=== PATIENT | male | born 1960 | race Caucasian/White ===

== ENCOUNTER → 2016-09-04 | Outpatient (CLI) | payer BC ==
[~2016-09-04] MED LIST: IOPAMIDOL (ISOVUE-300) 100 ML BTL ONE
== END ==
LOC: CIMAGING 14:36
PROVIDERS: ATTEND Internal Medicine Gastroenterology
DX: K57.32 Diverticulitis of large intestine without perforation or abscess without bleeding (principal)
CPT/HCPCS: 74177-PO; Q9967

== ENCOUNTER 2016-09-13 10:42 | Emergency (ER) | payer BC ==
[2016-09-13] MEDS ORDERED: MAG HYDROX/AL HYDROX/SIMETH 30 ML UDCUP PO ONE (11:23)
--- NOTE | 2016-09-13 11:30 | CPEKG ---
Heart Rate: 61 RR Interval: 984 P-R Interval: 168 QRSD Interval: 92 QT Interval: 416 QTC Interval: 419 P [place]: 35 QRS [place]: 23 T Wave [place]: 54 EKG Severity - NORMAL ECG - EKG Impression: SINUS RHYTHM Electronically Signed By: Suresh Cortés 13-Sep-2016 15:17:48
[2016-09-13 11:48] LABS: % IMMATURE GRANULYOCYTES 0.6 % (0.0-1.1); ABSOLUTE IMMATURE GRANULOCYTES 0.05 10^3/uL (0.00-0.10); ADD DIFF? NO; ADD MORPH? NO; ADD SCAN? NO; ATYPICAL LYMPHOCYTE FLAG 10 (0-99); FRAGMENT RBC FLAG 0 (0-99); HEMATOCRIT 51.8 % (40.0-51.0); HEMOGLOBIN 18.2 g/dL (13.7-17.5); LEFT SHIFT FLG 0 (0-99); LIPEMIA HEMOLYSIS FLAG 90 (0-99); MEAN CELL HEMOGLOBIN 30.4 pg (27.9-34.1); MEAN CELL HEMOGLOBIN CONCENTR. 35.1 g/dL (32.4-36.7); MEAN CELL VOLUME 86.6 fL (81.5-99.8); MEAN PLATELET VOLUME 10.3 fL (8.7-11.7); PLATELET CLUMPS FLAG 0 (0-99); PLATELET COUNT 250 10^3/uL (150-400); RED BLOOD CELL COUNT 5.98 10^6/uL (4.40-6.38); RED CELL DISTRIBUTION WIDTH 12.9 % (11.5-15.2)
[2016-09-13 12:00] LABS: ALANINE AMINOTRANSFERASE 43 IU/L (21-72); ALBUMIN 4.3 g/dL (3.5-5.0); ALKALINE PHOSPHATASE 81 IU/L (38-126); ANION GAP 15 mEq/L (8-16); ASPARTATE AMINOTRANSFERASE 26 IU/L (17-59); BILIRUBIN,TOTAL 0.7 mg/dL (0.1-1.4); CARBON DIOXIDE 23 mEq/l (22-31); CHLORIDE 102 mEq/L (97-110); CREATININE 0.8 mg/dL (0.7-1.3); GLOMERULAR FILTRATION RATE > 60; GLUCOSE 92 mg/dL (70-100); POTASSIUM 3.8 mEq/L (3.5-5.2); SODIUM 140 mEq/L (134-144); TOTAL PROTEIN 7.7 g/dL (6.3-8.2)
--- NOTE | 2016-09-13 12:47 | EDPHY ---
H & P Stated Complaint: epigastric pain since last night; LLQ pain 1wk; saw dr gray diverticulis Time Seen by Provider: 09/13/16 11:12 HPI/ROS: This patient has epigastric pain. He describes the intensity as peak 6/10 when it awakened him last night. Currently it is 3/10 slightly achy and burning in nature. He had some mild acid reflux symptoms prior to the onset of the symptoms yesterday. He also notes that after awakening he sat up in the couch and that improved his pain were as lying supine worsened his symptoms. No other exacerbating factors were noted. There is no radiation to his back. His recent history includes diagnosis of sigmoid diverticulitis via CT scan performed on 09/04/2016 at this facility after exam and evaluation by his primary care physician Dr. Usah Hearn. ROS: No fevers or chills. No other constitutional symptoms HEENT: No URI symptoms or other complaints Pulmonary: No cough shortness of breath Cardiovascular: No lightheadedness, chest pain or heart palpitations GI: His lower belly-left lower quadrant diverticulitis pain has resolved. He reports no nausea or vomiting. He has normal bowel movements. He maintains good appetite. : No complaints Integumentary: No complaints Neuro: No complaints 10 point ROS is otherwise negative Source: Patient Exam Limitations: No limitations - Personal History Current Tetanus/Diphtheria Vaccine: No Current Tetanus Diphtheria and Acellular Pertussis (TDAP): No - Medical/Surgical History PMH: Sigmoid diverticulitis as noted in HPI diagnosed 09/04/2016 H pylori treated in [place] Hx Asthma: No Hx Chronic Respiratory Disease: No Hx Diabetes: No Hx Cardiac Disease: No Hx Renal Disease: No Hx Cirrhosis: No Hx Alcoholism: No Hx HIV/AIDS: No Hx Splenectomy or Spleen Trauma: No - Family History Significant Family History: No pertinent family hx - Social History Smoking Status: Never smoked Alcohol Use: Occasionally Drug Use: None Additional Social History: The patient just moved here 2 weeks ago from [place] - Physical Exam Exam: General Appearance: Alert, no distress. Eyes: Pupils equal and round no pallor or injection. ENT, Mouth: Mucous membranes moist. Respiratory: There are no retractions, lungs are clear to auscultation. Cardiovascular: Regular rate and rhythm. Gastrointestinal: Normoactive, soft, mild epigastric tenderness that reproduces symptoms. No guarding or rebound. No lower belly tenderness Back: No CVA tenderness Neurological: GCS 15. No focal deficits Skin: Warm and dry, no rashes. Musculoskeletal: Neck is supple nontender. Extremities are symmetrical, full range of motion. Psychiatric: Mood and affect normal DIFFERENTIAL DIAGNOSIS: After history and physical exam differential diagnosis was considered for gastritis, pancreatitis, hepatitis, doubt ulcer, cardiac ischemia Constitutional: Initial Vital Signs Temperature (C) 37.2 C 09/13/16 10:50 Heart Rate 70 09/13/16 10:50 Respiratory Rate 20 09/13/16 10:50 O2 Sat (%) 95 09/13/16 10:50 O2 Delivery Mode Room Air Allergies/Adverse Reactions: No Known Allergies Allergy (Unverified 09/13/16 10:56) Home Medications: Medication Instructions Recorded Ciprofloxacin HCl 09/13/16 Dicyclomine HCl 09/13/16 Metronidazole 09/13/16 Pantoprazole Sodium [Protonix 40mg 40 mg PO DAILY #30 tab 09/13/16 (RX)] Medical Decision Making - Diagnostics EKG Interpretation: 12 lead EKG performed shortly after arrival indication epigastric pain rule out CT Performed at 11:20 a.m. Sinus rhythm at 61 Intervals: Normal throughout [place]: Normal throughout ST segments: Normal throughout Overall assessment: Normal EKG for complete read, refer to trace master Differential Diagnosis: GI cocktail with relief Review of labs reveals normal CBC, normal LFTs and chemistries. Discussion: Findings are most consistent with gastritis. Patient reports increased social stressors admits to increasing his caffeine intake from 1 cup of coffee due to 4 cups of coffee today "because there is a great coffee machine " at his new place of employment. I think that he is gastritis attributable to increased caffeine increase stress currently. H pylori recurrences another possibility. We ruled out hepatitis, pancreatitis, doubt ulcer given lack of significant clinical history of 4 that diagnosis and lack of anemia. I counseled the patient to continue and complete his current antibiotics for diverticulitis, to take probiotic and/or yogurt in addition an to start Protonix at 40 mg a day. He will follow up with primary care physician. For ongoing symptoms despite treatment plan I suggested follow up with Gastroenterology for further evaluation. - Data Points Laboratory Results: Laboratory Results 09/13/16 11:35 09/13/16 11:35 05/21/17 05/21/17 11:35 11:35 WBC 8.05 10^3/uL 10^3/uL (3.80-9.50) RBC 5.98 10^6/uL 10^6/uL (4.40-6.38) Hgb 18.2 g/dL H g/dL (13.7-17.5) Hct 51.8 % H % (40.0-51.0) MCV 86.6 fL fL (81.5-99.8) MCH 30.4 pg pg (27.9-34.1) MCHC 35.1 g/dL g/dL (32.4-36.7) RDW 12.9 % % (11.5-15.2) Plt Count 250 10^3/uL 10^3/uL (150-400) MPV 10.3 fL fL (8.7-11.7) Neut % (Auto) 74.5 % H % (39.3-74.2) Lymph % (Auto) 16.9 % % (15.0-45.0) [place] % (Auto) 6.0 % % (4.5-13.0) Eos % (Auto) 1.6 % % (0.6-7.6) Baso % (Auto) 0.4 % % (0.3-1.7) Nucleat RBC Rel Count 0.0 % % (0.0-0.2) Absolute Neuts (auto) 6.00 10^3/uL 10^3/uL (1.70-6.50) Absolute Lymphs (auto) 1.36 10^3/uL 10^3/uL (1.00-3.00) Absolute Monos (auto) 0.48 10^3/uL 10^3/uL (0.30-0.80) Absolute Eos (auto) 0.13 10^3/uL 10^3/uL (0.03-0.40) Absolute Basos (auto) 0.03 10^3/uL 10^3/uL (0.02-0.10) Absolute Nucleated RBC 0.00 10^3/uL 10^3/uL (0-0.01) Immature Gran % 0.6 % % (0.0-1.1) Immature Gran # 0.05 10^3/uL 10^3/uL (0.00-0.10) Sodium 140 mEq/L mEq/L (134-144) Potassium 3.8 mEq/L mEq/L (3.5-5.2) Chloride 102 mEq/L mEq/L (97-110) Carbon Dioxide 23 mEq/l mEq/l (22-31) Anion Gap 15 mEq/L mEq/L (8-16) BUN 13 mg/dL mg/dL (7-23) Creatinine 0.8 mg/dL mg/dL (0.7-1.3) Estimated GFR > 60 Glucose 92 mg/dL mg/dL (70-100) Calcium 9.0 mg/dL mg/dL (8.5-10.4) Total Bilirubin 0.7 mg/dL mg/dL (0.1-1.4) AST 26 IU/L IU/L (17-59) ALT 43 IU/L IU/L (21-72) Alkaline Phosphatase 81 IU/L IU/L (38-126) Total Protein 7.7 g/dL g/dL (6.3-8.2) Albumin 4.3 g/dL g/dL (3.5-5.0) Lipase 105.0 IU/L IU/L (23-300) Medications Given: Discontinued Medications Al Hydroxide/Mg Hydroxide (Maalox Susp) 30 ml PO ONCE ONE Stop: 09/13/16 11:24 Last Admin: 09/13/16 11:23 Dose: 30 ml Departure - Departure Disposition: Home, Routine, Self-Care Clinical Impression: Acute gastritis Qualifiers: Gastritis type: unspecified gastritis Gastritis bleeding: without bleeding Qualified Code(s): K29.00 - Acute gastritis without bleeding Condition: Good Instructions: Gastritis (ED) Additional Instructions: Diagnosis: Acute gastritis Plan: [place] diet to feel improved Prilosec or Protonix acid janna as prescribed Maalox in addition for discomfort if needed Complete your antibiotics Take probiotic and/or yogurt while on the antibiotics Follow up primary care physician for a recheck in 5-7 days. Return for any significant worsening despite treatment plan Referrals: Jerome Andrews MD [Medical Doctor] - As per Instructions Darien Arellano MD, FACG [Medical Doctor] - As per Instructions NONE *PRIMARY CARE P,. [Primary Care Provider] - As per Instructions Prescriptions: Pantoprazole Sodium [Protonix 40mg (RX)] 40 mg PO DAILY #30 tab
[2016-09-13 12:59] VITALS: BP 156/87; PULSE 64; RESP 16; TEMP 98.4; O2SAT 94
== END 2016-09-13 12:58 | disposition home or self-care (01) ==
LOC: CED 10:42
DX: K29.00 Acute gastritis without bleeding (principal)
CPT/HCPCS: 80053-PO; 83690-PO; 85025-PO

== ENCOUNTER 2016-09-29 07:27 | Emergency (ER) | payer BC ==
--- NOTE | 2016-09-29 07:42 | EDPHY ---
H & P Stated Complaint: last night diarrhea, nausea, sweats, abd pain after dinner Time Seen by Provider: 09/29/16 07:41 HPI/ROS: 56-year-old male with a history of diverticulitis treated with Cipro and Flagyl completed those antibiotics approximately 2 weeks ago presents today complaining of epigastric pain that began after eating last night followed by a night frequent loose stools, fevers and chills. He denies vomiting. His no prior abdominal surgeries He states approximately 20 years ago he had Giardia and approximately 9 years ago he had a case of E coli diarrhea. Review of systems As per HPI General positive fevers positive chills no weakness HEENT no eye pain no eye discharge. No eye redness, no sore throat Respiratory no cough, no shortness of breath Cardiac no chest pain, no peripheral edema GI positive abdominal pain positive diarrhea no constipation, no nausea, no vomiting no flank pain, no hematuria, no dysuria Musculoskeletal no myalgias, no joint pain Heme no easy bruising, no easy bleeding Endo no polyuria, no polydipsia Skin no rashes, no pruritus Neuro no syncope, no dizziness, no headaches Psych is no suicidal ideation, no homicidal ideation Source: Patient Exam Limitations: No limitations - Personal History Current Tetanus/Diphtheria Vaccine: No Current Tetanus Diphtheria and Acellular Pertussis (TDAP): No - Medical/Surgical History Hx Asthma: No Hx Chronic Respiratory Disease: No Hx Diabetes: No Hx Cardiac Disease: No Hx Renal Disease: No Hx Cirrhosis: No Hx Alcoholism: No Hx HIV/AIDS: No Hx Splenectomy or Spleen Trauma: No - Family History Significant Family History: No pertinent family hx - Social History Smoking Status: Never smoked Alcohol Use: Occasionally Drug Use: None - Physical Exam Exam: 56-year-old male alert and oriented in no acute distress nontoxic appearance, febrile to 38 C HEENT atraumatic normocephalic, extraocular muscles intact, anicteric Oropharynx negative for erythema negative exudate, tolerating her own secretions Neck supple no meningismus Lungs clear to auscultation bilaterally Heart regular rate and rhythm without murmur rub or gallop Abdomen nondistended normoactive bowel sounds soft , positive epigastric tenderness, no guarding no rebound Back no CVA tenderness, no step-offs, no spinal tenderness Extremities no cyanosis clubbing or edema Neuro alert and oriented, no focal deficits Constitutional: Initial Vital Signs Temperature (C) 38 C 09/29/16 07:30 Heart Rate 100 09/29/16 07:30 Respiratory Rate 20 09/29/16 07:30 Blood Pressure 131/89 H 09/29/16 07:30 O2 Sat (%) 94 09/29/16 07:30 O2 Delivery Mode Room Air Allergies/Adverse Reactions: No Known Allergies Allergy (Verified 09/29/16 07:36) Home Medications: Medication Instructions Recorded Pantoprazole Sodium [Protonix 40mg 40 mg PO DAILY #30 tab 09/13/16 (RX)] Azithromycin 500 mg PO DAILY #4 tablet 09/29/16 Medical Decision Making - Diagnostics Imaging Results: Imaging Impressions Abdomen CT 09/29/16 08:40 Impression: 1. Suspect early C. Difficile colitis of the ascending and transverse colon. 2. Borderline thickening of the appendix from 8 to 9 mm with appendicoliths, but no pericardial appendiceal inflammatory changes. 3. Sigmoid diverticulosis with resolved sigmoid diverticulitis. 4. No drainable abscess, bowel obstruction, or pneumoperitoneum. Findings and recommendations discussed with Emergency Department physician, Marcy Mauricio MD at 0910 hour, 09/29/2016. Final report concurs with initial preliminary interpretation. ED Course/Re-evaluation: Patient seen and evaluated for diarrhea fevers chills and epigastric abdominal pain. Differential diagnosis considered Viral gastroenteritis, bacterial enteritis, recurrent diverticulitis, clostridia difficile enteritis secondary to recent antibiotics Laboratories drawn, IV fluids normal saline given and acetaminophen 1 g given CBC with elevated white blood cell count to 23 CMP lipase within normal limits Patient was given [address] abdomen done to rule out abscess ongoing diverticulitis as well as appendicitis Consistent with a colitis in the ascending and transverse colon, prior diverticulitis resolved GI pathogen panel sent on stool came back positive for Campylobacter I discussed this case with the infectious disease specialist Dr. CHAVEZ. Impression Campylobacter enteritis Plan Azithromycin 500 mg 1 p. o. in the emergency department, given prescription for daily dose x4 days in addition to ER dose Advised patient to follow up with his primary care physician and/or to follow up with the risk investigator Dr. Hearn that had originally seen him for diverticulitis. Patient advised to rest drink plenty of liquids acetaminophen every 4-6 hours as needed for fever. - Data Points Laboratory Results: Laboratory Results 09/29/16 08:08 09/29/16 08:08 09/29/16 09/29/16 08:08 08:08 WBC 23.94 10^3/uL H 10^3/uL (3.80-9.50) RBC 5.77 10^6/uL 10^6/uL (4.40-6.38) Hgb 17.4 g/dL g/dL (13.7-17.5) Hct 49.2 % % (40.0-51.0) MCV 85.3 fL fL (81.5-99.8) MCH 30.2 pg pg (27.9-34.1) MCHC 35.4 g/dL g/dL (32.4-36.7) RDW 12.7 % % (11.5-15.2) Plt Count 172 10^3/uL 10^3/uL (150-400) MPV 10.9 fL fL (8.7-11.7) Neut % (Auto) 90.2 % H % (39.3-74.2) Lymph % (Auto) 2.8 % L % (15.0-45.0) [place] % (Auto) 6.3 % % (4.5-13.0) Eos % (Auto) 0.0 % L % (0.6-7.6) Baso % (Auto) 0.2 % L % (0.3-1.7) Nucleat RBC Rel Count 0.0 % % (0.0-0.2) Absolute Neuts (auto) 21.59 10^3/uL H 10^3/uL (1.70-6.50) Absolute Lymphs (auto) 0.68 10^3/uL L 10^3/uL (1.00-3.00) Absolute Monos (auto) 1.50 10^3/uL H 10^3/uL (0.30-0.80) Absolute Eos (auto) 0.00 10^3/uL L 10^3/uL (0.03-0.40) Absolute Basos (auto) 0.04 10^3/uL 10^3/uL (0.02-0.10) Absolute Nucleated RBC 0.00 10^3/uL 10^3/uL (0-0.01) Immature Gran % 0.5 % % (0.0-1.1) Immature Gran # 0.13 10^3/uL H 10^3/uL (0.00-0.10) Sodium 141 mEq/L mEq/L (134-144) Potassium 3.3 mEq/L L mEq/L (3.5-5.2) Chloride 103 mEq/L mEq/L (97-110) Carbon Dioxide 21 mEq/l L mEq/l (22-31) Anion Gap 17 mEq/L H mEq/L (8-16) BUN 16 mg/dL mg/dL (7-23) Creatinine 0.9 mg/dL mg/dL (0.7-1.3) Estimated GFR > 60 Glucose 110 mg/dL H mg/dL (70-100) Calcium 9.0 mg/dL mg/dL (8.5-10.4) Total Bilirubin 1.1 mg/dL mg/dL (0.1-1.4) AST 25 IU/L IU/L (17-59) ALT 46 IU/L IU/L (21-72) Alkaline Phosphatase 84 IU/L IU/L (38-126) Total Protein 7.3 g/dL g/dL (6.3-8.2) Albumin 4.1 g/dL g/dL (3.5-5.0) Lipase 63.0 IU/L IU/L (23-300) Microbiology Results: MICROBIOLOGY 09/29/16 08:35 Stool Gastrointestinal Tract Panel (PCR) - Final Campylobacter Species Medications Given: Discontinued Medications Acetaminophen (Tylenol) 325 mg PO EDNOW ONE Stop: 09/29/16 08:00 Last Admin: 09/29/16 08:22 Dose: 325 mg Acetaminophen (Tylenol) 650 mg PO EDNOW ONE Stop: 09/29/16 08:00 Last Admin: 09/29/16 08:22 Dose: 650 mg Azithromycin (Zithromax) 500 mg PO EDNOW ONE PRN Reason: Protocol Stop: 09/29/16 12:45 Last Admin: 09/29/16 12:45 Dose: 500 mg Sodium Chloride (Ns) 1,000 mls @ 0 mls/hr IV ONCE ONE PRN Reason: Wide Open Stop: 09/29/16 07:58 Last Admin: 09/29/16 08:08 Dose: 1,000 mls Sodium Chloride (Ns) 1,000 mls @ 0 mls/hr IV ONCE ONE PRN Reason: Wide [place] Stop: 09/29/16 08:46 Last Admin: 09/29/16 09:08 Dose: 1,000 mls Departure - Departure Disposition: Home, Routine, Self-Care Clinical Impression: Campylobacter diarrhea Condition: Good Instructions: Infectious Colitis (ED) Referrals: Hearn,Usha Blackman MD [Primary Care Provider] - As per Instructions Prescriptions: Azithromycin 500 mg PO DAILY #4 tablet
[2016-09-29] MEDS ORDERED: NS 1,000 ML IV ONE ×2 (07:57→08:45)
[2016-09-29] MEDS ORDERED: ACETAMINOPHEN 325 MG TAB PO ONE ×2 (07:59)
[2016-09-29 08:17] LABS: % IMMATURE GRANULYOCYTES 0.5 % (0.0-1.1); ABSOLUTE IMMATURE GRANULOCYTES 0.13 10^3/uL (0.00-0.10); ADD DIFF? NO; ADD MORPH? NO; ADD SCAN? NO; ATYPICAL LYMPHOCYTE FLAG 0 (0-99); FRAGMENT RBC FLAG 0 (0-99); HEMATOCRIT 49.2 % (40.0-51.0); HEMOGLOBIN 17.4 g/dL (13.7-17.5); LEFT SHIFT FLG 50 (0-99); LIPEMIA HEMOLYSIS FLAG 90 (0-99); MEAN CELL HEMOGLOBIN 30.2 pg (27.9-34.1); MEAN CELL HEMOGLOBIN CONCENTR. 35.4 g/dL (32.4-36.7); MEAN CELL VOLUME 85.3 fL (81.5-99.8); MEAN PLATELET VOLUME 10.9 fL (8.7-11.7); PLATELET CLUMPS FLAG 0 (0-99); PLATELET COUNT 172 10^3/uL (150-400); RED BLOOD CELL COUNT 5.77 10^6/uL (4.40-6.38); RED CELL DISTRIBUTION WIDTH 12.7 % (11.5-15.2)
[2016-09-29 08:30] LABS: ALANINE AMINOTRANSFERASE 46 IU/L (21-72); ALBUMIN 4.1 g/dL (3.5-5.0); ALKALINE PHOSPHATASE 84 IU/L (38-126); ANION GAP 17 mEq/L (8-16); ASPARTATE AMINOTRANSFERASE 25 IU/L (17-59); BILIRUBIN,TOTAL 1.1 mg/dL (0.1-1.4); CARBON DIOXIDE 21 mEq/l (22-31); CHLORIDE 103 mEq/L (97-110); CREATININE 0.9 mg/dL (0.7-1.3); GLOMERULAR FILTRATION RATE > 60; GLUCOSE 110 mg/dL (70-100); POTASSIUM 3.3 mEq/L (3.5-5.2); SODIUM 141 mEq/L (134-144); TOTAL PROTEIN 7.3 g/dL (6.3-8.2)
[2016-09-29] MEDS ORDERED: IOPAMIDOL (ISOVUE-300) 100 ML BTL ONE (08:47)
[2016-09-29 09:07] VITALS: RESP 16
[2016-09-29 11:40] VITALS: PULSE 80
[2016-09-29] MEDS ORDERED: AZITHROMYCIN 250 MG TAB PO ONE (12:44)
[2016-09-29 13:00] VITALS: BP 126/76; TEMP 99.1; O2SAT 95
== END 2016-09-29 13:02 | disposition home or self-care (01) ==
LOC: CED 07:27
DX: A04.5 Campylobacter enteritis (principal)
CPT/HCPCS: 74177-PO; 80053-PO; 83690-PO; 85025-PO; Q9967